=== PATIENT | male | born 1945 | race Caucasian/White ===

== ENCOUNTER → 2016-07-31 | Day surgery (SDC) | payer MEDICARE, OTHER ==
[~2016-07-31] MED LIST: ASPI325T PO; AZOR5TAB4 PO; EXFORGE PO; FENO1CAP4 PO; FOLI400T PO; GLUCTAB PO; GLYB5TAB3 PO; LIDOCAINE HCL 1% 30 ML VIAL NERV BLOCK ONE; METF850T PO; METO50TA PO; MULT400T PO; OMEP10CA PO; POTA-243 PO; PRIL20CA9 PO; PROPOFOL 200 MG/20 ML AMP IV ONE; PROS5TAB PO; ROSU10 PO; SITA1TAB2 PO; SODIUM CHLORIDE 0.9% 10 ML VIAL ONE; TEKT150T PO; VITA400C97 PO; methylPREDNISolone ACETATE 80 MG/ML VIAL ONE
--- NOTE | 2016-08-04 13:00 | M6 ---
cc: RALEIGH PRAKASH M.D. DATE 07/31/2016 DATE OF 1945 PROCEDURE Fluoroscopically guided L5-S1 translaminar epidural steroid injection. History and physical was completed and signed. Consent was signed. Procedure site was marked. Medications were listed and reconciled. Pain score was recorded. Allergies were noted. Time out was taken. Fluoroscopy time was recorded where applicable. Sedation was administered or directed by Dr. Prakash. The patient was given oxygen. The patient was monitored by a registered nurse. Total procedure time was greater than 15 minutes. PROCEDURE NOTE IV was started. Blood pressure cuff, pulse oximeter and EKG were applied. The patient was placed in the prone position on a Karan table, sedated with small amounts of propofol titrated to effect. Vital signs were monitored and remained stable throughout the procedure. The lumbar area was prepped with alcohol and 10% Betadine solution and draped with sterile drapes. Fluoroscopy was used to visualize the L5-S1 translaminar space. The skin was infiltrated with 1% Xylocaine using a 27-gauge needle. Then a 3-1/2-inch, 18-gauge Agosto needle was advanced using fluoroscopic guidance and the qldy-rd-fuopxcetba technique into the epidural space at L5-S1 slightly to the left of the midline. There was negative aspiration for blood or any other type of fluid and the patient was given 10 mL of 0.5% Xylocaine, 80 mg of Depo-Medrol. Following the procedure the patient was taken to the recovery room with stable vital signs, neurologically intact. W. MD ESTRELLA Farris/NALLELY /8:55 AM /12:58 PM
== END | disposition home or self-care (01) ==
LOC: PHSDC 07:24
PROVIDERS: ATTEND Pain Medicine Interventional Pain Medicine
DX: M54.5 Low back pain (principal)
CPT/HCPCS: 62323; 99152; J1040